=== PATIENT | male | born 1960 | race Caucasian/White ===

== ENCOUNTER 2025-05-28 22:17 | Emergency (ER) | payer OTHER, SELFPAY ==
[2025-05-28 22:26] VITALS: BP 142/78
[2025-05-28] MEDS: TYLENOL 1000 MG PO (22:44)
[2025-05-28 22:53] LABS: Hematocrit 41.8 % (39.0-52.0); Hemoglobin 14.6 g/dL (13.0-18.0); Mean Corp Hgb Conc. 34.9 g/dL (33.0-37.0); Mean Corpuscular Volume 83.6 fL (80.0-94.0); Nucleated Red Blood Cells % 0 % (-); Platelet Count 299 10^3/uL (130-400); Red Cell Dist. Width 13.2 % (11.5-14.5)
[2025-05-28 23:08] LABS: COVID-19 Antigen Negative (Negative)
[2025-05-28 23:14] LABS: ALT (SGPT) 52 U/L (0-50); AST (SGOT) 25 U/L (17-59); Albumin 4.4 g/dl (3.5-5.0); Alkaline Phosphatase 94 U/L (38-126); Blood Urea Nitrogen 21 mg/dl (9-20); Calcium 9.1 mg/dl (8.4-10.2); Carbon Dioxide 24 mmol/L (22-30); Chloride 100 mmol/L (98-107); Glucose 128 mg/dl (70-99); Lipase 136 U/L (23-300); Potassium 4.2 mmol/L (3.5-5.1); Sodium 131 mmol/L (135-145); Total Protein 7.4 g/dl (6.3-8.2); eGFR > 60.00
[2025-05-28 23:24] VITALS: BP 115/67
[2025-05-29] VITALS: BP 104/61
[2025-05-29] MEDS: ZOFRAN 4 MG IV (00:19)
[2025-05-29] MEDS: NSS 1000 IV (00:19)
[2025-05-29 00:43] VITALS: BP 100/52
[2025-05-29 01:00] VITALS: BP 107/58
[2025-05-29 01:33] LABS: Urine Character Slightly Cloudy (Clear)
[2025-05-29 01:57] LABS: Urine Red Blood Cell None Seen /HPF (0-2); Urine White Cell 0-2 /HPF (0-5)
[2025-05-29 02:00] VITALS: BP 108/68
--- NOTE | 2025-05-29 02:06 | ED.GENMED ---
History of Present Illness
<Stephanie Lane SEISMOGRAPHER - Last Filed: 05/29/25 17:47>
General
Chief Complaint: Fever
Source: patient
Exam Limitations: none
Time Seen by Provider: 05/28/25 23:50
Nursing documentation reviewed up to this point in time: agreed with
History of Present Illness
History of Present Illness:
65-year-old male who presents with recurrent episodes of fever and nausea. Approximately two weeks ago, after dining out, the patient experienced severe stomach pain and nausea accompanied by a high fever, reaching a maximum of 105�F. The fever
persisted for about five days, running between 103�F and 105�F. The patient reported no vomiting or diarrhea during this time. The fever and symptoms resolved for about a week, during which the patient felt entirely well.
Last night, after eating at a different restaurant, the patient quickly developed nausea and felt febrile within 1-2 hours after the meal. Although the patient did not measure the fever at that time, he noted feeling feverish. Today, upon waking
late, 1 p.m., the patient continued to experience fatigue, nausea, and a confirmed fever of 103�F. He took Tylenol or Advil approximately two and a half hours before presenting to the clinic, which briefly alleviated the symptoms.
Past History
<Stephanie Lane, SEISMOGRAPHER - Last Filed: 05/29/25 17:47>
Past History
ED Past Medical History: Hypercholesterolemia
ED Past Surgical History: Orthopedic (Left knee replacement)
Social History
Tobacco: Non-smoker
Alcohol: None
Drug: None
Personal:
Living: with family
Employment: Employed
Family History
Family History: Hypertension and Cancer (Bladder)
Review of Systems
<Stephanie Lane, SEISMOGRAPHER - Last Filed: 05/29/25 17:47>
Review of Systems
Allergies reviewed?: Yes
All Other Systems: ROS reviewed and negative except as documented in HPI and ROS
Constitutional: Reports fever and fatigue
EENT: Denies sore throat
Respiratory: Denies cough or trouble breathing
Cardiac: Denies chest pain
ABD/GI: Reports nausea; Denies abdominal pain, vomiting, diarrhea, bloody stools or black stools
: Denies dysuria, frequency or difficulty voiding
Musculoskeletal: Reports no symptoms
Skin: Reports no symptoms
Neurological: Reports no symptoms
Phy Exam
<Stephanie V. Nestor, SEISMOGRAPHER - Last Filed: 05/29/25 17:47>
Physical Exam
Physical Exam:
GENERAL: No acute distress. A&Ox3.
CONSTITUTIONAL: T 100.0 po
EYES: clear, conjunctivae mildly injected
ENMT: moist mucus membranes, Pharynx nl
RESPIRATORY: Regular respirations, nonlabored, lungs clear.
CARDIOVASCULAR: Regular rate and rhythm, no murmurs, no rubs.
GI: Soft, nontender, normal BS, fleeting right abdominal cramp when he sat up
MUSCULOSKELETAL: Moves with ease. Well perfused.
SKIN: Warm, starting to sweat, neck moist, dripping, pink
PSYCH: Normal mood and affect. Well kept, interactive and appropriate
NEUROLOGIC: Awake, alert and oriented. No focal neurological deficits
Sepsis
<Stephanie V. , SEISMOGRAPHER - Last Filed: 05/29/25 17:47>
Sepsis Screening
Sepsis Assessment: Sepsis Ruled Out
Sepsis Screen
Sepsis Screen: Sepsis Ruled Out
Date: 05/29/25
Time: 17:46
Course
<Stephanie V. , SEISMOGRAPHER - Last Filed: 05/29/25 17:47>
Orders/Labs/Results
Orders:
Orders
05/28/25 22:31
Electrocardiogram (*1) Urgent
Reason for Study: Tachycardia
EKG- Treatment ONCE
Urinalysis Reflex To Culture Urgent
Date Specimen was Collected: 05/28/25
Time Specimen was Collected: 22:31
05/28/25 22:38
Complete Blood Count/With Diff Urgent
Comprehensive Metabolic Panel Urgent
Lactic Acid Urgent
Lipase Urgent
05/28/25 22:39
COVID-19 Antigen Urgent
Source: Nasal Swab
Influenza A+B Rapid Molecular Urgent
[facility] Source: Nasal Swab
Specimen Description:
Date Specimen was Collected: 05/28/25
Time Specimen was Collected: 22:31
05/28/25 22:42
Blood Culture Urgent
[facility] Source: Blood/Venous
Specimen Description:
Acetaminophen [Tylenol] 1,000 mg .ROUTE .STK-MED ONE
05/28/25 22:44
Acetaminophen [Tylenol] 1,000 mg PO NOW STA
05/29/25 00:12
Ondansetron Injectable [Zofran] 4 mg IV NOW STA
05/29/25 00:13
0.9% Sodium Chloride 1000 ml [Nss] 1,000 ml IV BOLUS
CR Chest - 2 Views Urgent
Comment:
Reason For Exam: fever, cough
05/29/25 00:38
Urine Microscopic Reflex Cult Urgent
Blood Culture Q30M
[facility] Source: Blood/Venous
Specimen Description:
Blood Culture Q30M
[facility] Source: Blood/Venous
Specimen Description:
05/29/25 02:05
CT Abd/Pel (IV only)-DH only Urgent
Comment:
Reason For Exam: fever, nausea, fatigue
Abnormal Lab Results
05/28/25 05/29/25
22:38 00:38
WBC 12.0 H 10^3/uL
(4.8-10.8)
Abs Immat Gran (auto) 0.1 H 10^3/uL
(0-0.05)
Absolute Neuts (auto) 10.1 H 10^3/uL
(1.4-6.5)
Absolute Lymphs (auto) 1.0 L 10^3/uL
(1.2-3.4)
Absolute Monos (auto) 0.9 H 10^3/uL
(0.1-0.6)
Neutrophils % 83.8 H %
(42.2-75.2)
Lymphocytes % 8.4 L %
(20.5-51.1)
Sodium 131 L mmol/L
(135-145)
BUN 21 H mg/dl
(9-20)
Glucose 128 H mg/dl
(70-99)
ALT 52 H U/L
(0-50)
Ur Occult Blood Reflex 4+ A
(Negative)
Urine Bacteria (Reflex) Few A
(Negative)
Urine Albumin (Reflex) 1+ A
(Neg - Trace)
05/28/25 22:38
05/28/25 22:38
Vital Signs
Initial and Last Documented VS:
Initial Vital Signs
Temp Pulse Resp BP Pulse Ox
103.2 F H 138 20 142/78 93
05/28/25 22:26 05/28/25 22:26 05/28/25 22:26 05/28/25 22:26 05/28/25 22:26
Last Documented Vital Signs
Temp Pulse Resp BP Pulse Ox
98.8 F 84 16 108/71 96
05/29/25 03:58 05/29/25 03:58 05/29/25 03:58 05/29/25 03:58 05/29/25 03:58
<Miguel Meek, - Last Filed: 05/29/25 03:38>
Orders/Labs/Results
Orders:
Orders
05/28/25 22:31
Electrocardiogram (*1) Urgent
Reason for Study: Tachycardia
EKG- Treatment ONCE
Urinalysis Reflex To Culture Urgent
Date Specimen was Collected: 05/28/25
Time Specimen was Collected: 22:31
05/28/25 22:38
Complete Blood Count/With Diff Urgent
Comprehensive Metabolic Panel Urgent
Lactic Acid Urgent
Lipase Urgent
05/28/25 22:39
COVID-19 Antigen Urgent
Source: Nasal Swab
Influenza A+B Rapid Molecular Urgent
[facility] Source: Nasal Swab
Specimen Description:
Date Specimen was Collected: 05/28/25
Time Specimen was Collected: 22:31
05/28/25 22:42
Blood Culture Urgent
[facility] Source: Blood/Venous
Specimen Description:
Acetaminophen [Tylenol] 1,000 mg .ROUTE .STK-MED ONE
05/28/25 22:44
Acetaminophen [Tylenol] 1,000 mg PO NOW STA
05/29/25 00:12
Ondansetron Injectable [Zofran] 4 mg IV NOW STA
05/29/25 00:13
0.9% Sodium Chloride 1000 ml [Nss] 1,000 ml IV BOLUS
CR Chest - 2 Views Urgent
Comment:
Reason For Exam: fever, cough
05/29/25 00:38
Urine Microscopic Reflex Cult Urgent
Blood Culture Q30M
[facility] Source: Blood/Venous
Specimen Description:
Blood Culture Q30M
[facility] Source: Blood/Venous
Specimen Description:
05/29/25 02:05
CT Abd/Pel (IV only)-DH only Urgent
Comment:
Reason For Exam: fever, nausea, fatigue
Abnormal Lab Results
05/28/25 05/29/25
22:38 00:38
WBC 12.0 H 10^3/uL
(4.8-10.8)
Abs Immat Gran (auto) 0.1 H 10^3/uL
(0-0.05)
Absolute Neuts (auto) 10.1 H 10^3/uL
(1.4-6.5)
Absolute Lymphs (auto) 1.0 L 10^3/uL
(1.2-3.4)
Absolute Monos (auto) 0.9 H 10^3/uL
(0.1-0.6)
Neutrophils % 83.8 H %
(42.2-75.2)
Lymphocytes % 8.4 L %
(20.5-51.1)
Sodium 131 L mmol/L
(135-145)
BUN 21 H mg/dl
(9-20)
Glucose 128 H mg/dl
(70-99)
ALT 52 H U/L
(0-50)
Ur Occult Blood Reflex 4+ A
(Negative)
Urine Bacteria (Reflex) Few A
(Negative)
Urine Albumin (Reflex) 1+ A
(Neg - Trace)
05/28/25 22:38
05/28/25 22:38
Vital Signs
Initial and Last Documented VS:
Initial Vital Signs
Temp Pulse Resp BP Pulse Ox
103.2 F H 138 20 142/78 93
05/28/25 22:26 05/28/25 22:26 05/28/25 22:26 05/28/25 22:26 05/28/25 22:26
Last Documented Vital Signs
Temp Pulse Resp BP Pulse Ox
98.8 F 84 16 108/71 96
05/29/25 03:58 05/29/25 03:58 05/29/25 03:58 05/29/25 03:58 05/29/25 03:58
<Stephanie Lane, SEISMOGRAPHER - Last Filed: 05/29/25 17:47>
MDM/Problems Addressed
Differential Diagnosis Includes:
Infectious gastroenteritis, food poisoning, viral syndrome, sepsis, pneumonia
MDM/Problems Addressed:
65-year-old male who presents with recurrent episodes of fever and nausea, abdominal pain. Approximately two weeks ago, after dining out, the patient experienced severe stomach pain and nausea accompanied by a high fever, reaching a maximum of
105�F. The fever persisted for about five days, running between 103�F and 105�F. The patient reported no vomiting or diarrhea during this time. The fever and symptoms resolved for about a week, during which the patient felt entirely well.
Last night, after eating at a different restaurant, the patient quickly developed nausea and felt febrile within 1-2 hours after the meal. Although the patient did not measure the fever at that time, he noted feeling feverish. He had some abdominal
pain but not as bad as it was 2 weeks ago. Today, upon waking late, 1 p.m., the patient continued to experience fatigue, nausea, and a confirmed fever of 103�F. He took Advil approximately two and a half hours [employer] and given Tylenol in Triage
Temp now 100.0 po
During exam when asked to sit up, patient developed a right upper abdominal cramp lasting several seconds then subsided
CBC: WBC 12.0
CMP: No clinically significant abnormality UA: 4+ blood, negative for infection
Covid neg
Chest x-ray initially read by this examiner, no acute abnormality, Case discussed with Dr. Meek who reviewed x-ray and agrees
Patient is awaiting abdominal CT with IV contrast.
2:30 AM:
Temperature 98.8, patient looks better, he states he feels better
Patient to CAT scan
<Stephanie Lane SEISMOGRAPHER - Last Filed: 05/29/25 17:47>
*Pulse Oximetry
SaO2: 93
Oxygen Mode of Delivery: Room air
Patient hypoxic: no
*Critical Care Note
Total Time (30-74mins, 75-104mins- exclusive of procedures): Not Applicable
<Miguel Meek DO - Last Filed: 05/29/25 03:38>
Update Note
Update Note:
NAME: ABEL GARCIA
DATE OF EXAM: 05/29/2025
Patient No: [id number]
Physician: NESTOR^LILIANE
Date of : 1960
Past Medical History (entered by Technologist):
Reason For Exam (entered by Technologist):
Other Notes (entered by Technologist): pt c/o fever & abdominal pain that first occurred 2 weeks ago - lasted about a week. pt felt better for a week, then last night symptoms returned. (+) nausea, (-) vomiting/diarrhea. pt tachycardic in triage,
denies CP, SOB, palpitations.
Prior sent
Additional Information (per [facility] Radiologist):
CT ABDOMEN AND PELVIS WITH IV CONTRAST
IMPRESSION
Bladder is moderately distended probably accounts for mild prominence of the ureters bilaterally. No stones or obstruction.
Too small to characterize low-density lesions within the kidneys and liver, may represent small cysts. Small parapelvic cysts in the left kidney
Gallbladder and appendix are unremarkable.
Diverticulosis without evidence of diverticulitis.
Aorta demonstrates no evidence of aneurysm or dissection, moderate atherosclerosis.
Case faxed/finalized at 3:33 AM eastern time . If there are any questions please contact me at [phone].
Cameron Castillo M.D.
This report has been electronically signed and verified by the Radiologist whose name is printed above.
ED Attending Note
<Stephanie Lane, SEISMOGRAPHER - Last Filed: 05/29/25 17:47>
-
Portions of this chart may have been created with voice recognition software.� Occasional wrong word or��sound alike� substitutions may have occurred due to the inherent limitations of voice recognition software.
<Miguel Meek DO - Last Filed: 05/29/25 03:38>
ED Attending Note
Patient seen and examined by attending physician: Yes
ED Attending Note:
65-year-old male with intermittent abdominal pain and fever. Patient was seen in conjunction with the nurse practitioner. I have reviewed and agreed with her history and treatment plan. On independent physical exam patient awake alert oriented x
3 no acute distress. Abdomen soft and nontender. CT scan did not show any acute processes. Patient to be discharged to follow-up.
Discharge Plan
Departure
Patient Disposition: Home (Routine Discharge)
Date of Disposition: 05/29/25
Time of Disposition: 03:36
Patient with high blood pressure during this ER visit?: No
Condition: Good
Discharge Problem:
Fever, Abdominal pain
Instructions: Fever, Adult (DC), Abdominal Pain
Prescriptions:
No Action
omeprazole 40 MG capsule,delayed release(DR/EC)
40 mg PO DAILY Qty: 30 0RF
Referrals:
Naveen Webster, [Non-Admitting Privileges, General] - As needed
NONE,* [Family Provider, Internal Medicine]
Activity Restrictions/Additional Instructions:
As we discussed, your workup here shows nothing worrisome,
See your doctor Saturday if not 100% better by then.
Tylenol and Ibuprofen as needed for fever.
Return here immediately for worsening pain, vomiting, or feeling sicker in any way.
You may call me Saturday between 8a and 3 pm for blood culture results if you haven't gotten the results by then.
Interventions
Interventions:
*Risk Screen - Suicide Last Done: 05/28/25 22:29
*General Assessment Last Done: 05/28/25 22:29
*Neglect/Abuse Screening Last Done: 05/28/25 22:29
*ED- Fall Risk Assessment Last Done: 05/29/25 03:50
*ED COVID-19 Vaccine History Last Done: 05/28/25 22:29
*Nursing Disposition Last Done: 05/29/25 03:58
GS-Mazksw-Lookvtsvxk Assessment Last Done: 05/28/25 23:42
ED- Neurological Assessment Last Done: 05/28/25 23:39
ED-Skin Assessment Last Done: 05/28/25 23:39
Discharge Date and Time
Discharge Date/Time: 05/29/25 04:00
Print Language: TAMAZIGHT
[2025-05-29 03:00] VITALS: BP 108/71
[2025-05-29 03:58] VITALS: BP 108/71
== END 2025-05-29 04:00 | disposition home or self-care (01) ==
LOC: EMR 22:17
PROVIDERS: EMERGENCY PHYSICIAN Student in an Organized Health Care Education/Training Program
DX: R50.9 Fever, unspecified (principal); R10.9 Unspecified abdominal pain; E78.00 Pure hypercholesterolemia, unspecified; K57.30 Diverticulosis of large intestine without perforation or abscess without bleeding; N28.1 Cyst of kidney, acquired; Z96.652 Presence of left artificial knee joint; Z82.49 Family history of ischemic heart disease and other diseases of the circulatory system
CPT/HCPCS: 99284; 96374; 96361; 71046; 74177; 80053; 81003; 81015; 83605; 83690; 85025; 87040; 87502; 87811; 93005; Q9967

== ENCOUNTER 2025-05-30 16:13 | Emergency (ER) | payer OTHER, SELFPAY ==
[2025-05-30 16:15] VITALS: BP 142/82
[2025-05-30 16:56] LABS: Hematocrit 41.0 % (39.0-52.0); Hemoglobin 14.0 g/dL (13.0-18.0); Mean Corp Hgb Conc. 34.1 g/dL (33.0-37.0); Mean Corpuscular Volume 84.2 fL (80.0-94.0); Nucleated Red Blood Cells % 0 % (-); Platelet Count 147 10^3/uL (130-400); Red Cell Dist. Width 13.3 % (11.5-14.5)
[2025-05-30 17:09] LABS: ALT (SGPT) 39 U/L (0-50); AST (SGOT) 27 U/L (17-59); Albumin 4.0 g/dl (3.5-5.0); Alkaline Phosphatase 74 U/L (38-126); Blood Urea Nitrogen 17 mg/dl (9-20); Calcium 8.1 mg/dl (8.4-10.2); Carbon Dioxide 29 mmol/L (22-30); Chloride 100 mmol/L (98-107); Estimated Creatinine Clearance 87 ml/min; Glucose 117 mg/dl (70-99); Potassium 3.6 mmol/L (3.5-5.1); Sodium 135 mmol/L (135-145); Total Protein 6.8 g/dl (6.3-8.2); eGFR > 60.00
[2025-05-30 18:14] VITALS: BP 111/59
[2025-05-30] MEDS: TYLENOL 1000 MG PO (18:20)
[2025-05-30 18:42] LABS: Urine Character Slightly Cloudy (Clear)
[2025-05-30 19:01] LABS: Urine Squamous Cell 0-2 /LPF (Few)
--- NOTE | 2025-05-30 19:10 | ED.GENMED ---
History of Present Illness
General
Chief Complaint: Fever
Time Seen by Provider: 05/30/25 16:31
History of Present Illness
History of Present Illness:
65-year-old male with history of hyperlipidemia presents to the emergency department for evaluation of continued fever. Overall he reports a total of 2 weeks with intermittent fevers with a short duration fever free in the middle of these weeks.
He was seen in this emergency department 2 days ago and had labs that were unrevealing as well as a CT abdomen pelvis, chest x-ray, and urinalysis that were all unrevealing. He denies any known tick bites or exposure to ill contacts. No
individuals of his family have developed similar symptoms.
Past History
Past History
ED Past Medical History: Hypercholesterolemia
ED Past Surgical History: Orthopedic (Left knee replacement)
Social History
Tobacco: Non-smoker
Alcohol: None
Drug: None
Personal:
Living: with family
Employment: Employed
Family History
Family History: Hypertension and Cancer (Bladder)
Review of Systems
Review of Systems
Allergies reviewed?: Yes
All Other Systems: ROS reviewed and negative except as documented in HPI and ROS
Phy Exam
Physical Exam
Physical Exam:
GEN: Well appearing, NAD, WDWN
HEENT: Oral mucosa moist, no scleral icterus
Cardiac: Regular rate and rhythm, no murmur
Lung: No respiratory distress, no tachypnea, lungs clear to auscultation bilaterally
Abdomen: Soft, grossly nontender
MSK: No gross deformity or injuries
Skin: Good color, no pallor or jaundice, no rashes
Neuro: AO x3, moves all extremities freely
Psych: Calm, cooperative
Course
Orders/Labs/Results
Orders:
Orders
05/30/25 16:44
Complete Blood Count/With Diff Urgent
Comprehensive Metabolic Panel Urgent
Lactate Level [Lactic Acid] Q4H
Blood Culture NOW
[facility] Source: Blood/Venous
Specimen Description:
05/30/25 16:53
CR Chest - 2 Views Urgent
Comment:
Reason For Exam: fever
05/30/25 17:00
Lyme Progressive Urgent
05/30/25 17:01
Ehrlichia chaffeensis Ab Panel [S] Urgent
Ehrlichia/Anaplasma by PCR [S] Urgent
Blood Parasites Urgent
[facility] Source: Blood/Venous
Specimen Description:
05/30/25 17:46
Blood Culture Urgent
[facility] Source: Blood/Venous
Specimen Description:
05/30/25 18:15
Urinalysis Reflex To Culture Urgent
Date Specimen was Collected: 05/30/25
Time Specimen was Collected: 18:13
Urine Microscopic Reflex Cult Urgent
Urine Culture Urgent
[facility] Source: U
Specimen Description:
Obtained by: Random
Date Specimen was Collected: 05/30/25
Time Specimen was Collected: 18:13
05/30/25 18:19
Acetaminophen [Tylenol] 1,000 mg PO NOW STA
05/30/25 18:20
Acetaminophen [Tylenol] 1,000 mg .ROUTE .STK-MED ONE
05/30/25 19:28
Doxycycline [Vibramycin] 100 mg PO NOW STA
Abnormal Lab Results
05/30/25 05/30/25
16:44 18:15
Neutrophils % 75.3 H %
(42.2-75.2)
Lymphocytes % 17.7 L %
(20.5-51.1)
Glucose 117 H mg/dl
(70-99)
Calcium 8.1 L mg/dl
(8.4-10.2)
Ur Occult Blood Reflex 4+ A
(Negative)
Urine Nitrite (Reflex) Positive A
(Negative)
Urine Urobilinogen 3+ A
(Neg - 1+)
Leukocyte Esterase Rfl 1+ A
(Negative)
Urine RBC 7-10 A /HPF
(0-2)
Urine WBC (Reflex) 11-15 A /HPF
(0-5)
Urine Bacteria (Reflex) Moderate A
(Negative)
Urine Albumin (Reflex) 2+ A
(Neg - Trace)
05/30/25 16:44
05/30/25 16:44
Vital Signs
Initial and Last Documented VS:
Initial Vital Signs
Temp Pulse Resp BP Pulse Ox
101.9 F H 123 17 142/82 99
05/30/25 16:15 05/30/25 16:15 05/30/25 16:15 05/30/25 16:15 05/30/25 16:15
Last Documented Vital Signs
Temp Pulse Resp BP Pulse Ox
98 F 100 16 111/59 93
05/30/25 19:19 05/30/25 18:14 05/30/25 19:19 05/30/25 18:14 05/30/25 19:11
MDM/Problems Addressed
MDM/Problems Addressed:
Labs reassuring today although UA with moderate bacteriuria and leukocytosis, patient does not have lower urinary tract voiding symptoms. Tick panel added on as well given relative thrombocytopenia compared to 2 days ago. Will cover with
doxycycline broadly until cultures can result to taper therapy appropriately
*Pulse Oximetry
SaO2: 93
Oxygen Mode of Delivery: Room air
Patient hypoxic: no
*Critical Care Note
Total Time (30-74mins, 75-104mins- exclusive of procedures): Not Applicable
ED Attending Note
-
Portions of this chart may have been created with voice recognition software.� Occasional wrong word or��sound alike� substitutions may have occurred due to the inherent limitations of voice recognition software.
Discharge Plan
Departure
Patient Disposition: Home (Routine Discharge)
Date of Disposition: 05/30/25
Time of Disposition: 19:10
Patient with high blood pressure during this ER visit?: No
Discharge Problem:
Fever
Instructions: Fever, Adult (DC)
Prescriptions:
New
doxycycline hyclate 100 mg tablet
100 mg PO BID Qty: 14 0RF
No Action
omeprazole 40 MG capsule,delayed release(DR/EC)
40 mg PO DAILY Qty: 30 0RF
Referrals:
Paco Beckman MD [Family Provider, Internal Medicine]
Interventions
Interventions:
*Risk Screen - Suicide Last Done: 05/30/25 16:17
*General Assessment Last Done: 05/30/25 16:17
*Neglect/Abuse Screening Last Done: 05/30/25 16:17
*ED COVID-19 Vaccine History Last Done: 05/30/25 16:17
*Nursing Disposition Last Done: 05/30/25 19:19
ED- Neurological Assessment Last Done: 05/30/25 16:50
ED-Skin Assessment Last Done: 05/30/25 16:50
Discharge Date and Time
Discharge Date/Time: 05/30/25 19:20
Print Language: GUATEMALAN
[2025-05-30] MEDS: VIBRAMYCIN 100 MG PO (19:30)
[2025-06-01 13:53] LABS: Lyme Antibody Screen, EIA Negative (Negative)
== END 2025-05-30 19:20 | disposition home or self-care (01) ==
LOC: EMR 16:13
PROVIDERS: Physician Assistant; EMERGENCY PHYSICIAN Emergency Medicine; FAMILY PHYSICIAN Internal Medicine
DX: R50.9 Fever, unspecified (principal); E78.00 Pure hypercholesterolemia, unspecified; Z96.652 Presence of left artificial knee joint; Z88.0 Allergy status to penicillin
CPT/HCPCS: 99283; 71046; 80053; 81003; 81015; 83605; 85025; 86618; 86666; 87015; 87040; 87086; 87147; 87207; 87468; 87484; 87798